=== PATIENT | female | born 1970 | race Caucasian/White ===

== ENCOUNTER → 2016-07-29 | Outpatient (CLI) | payer OTHER ==
--- NOTE | 2016-07-29 07:58 | US ---
EXAMINATION TYPE: US abdomen complete DATE OF EXAM: 07/29/2016 7:23 AM COMPARISON: NONE CLINICAL HISTORY: R10.9 ABD PAIN. EXAM MEASUREMENTS: Liver Length: 14.8 cm Gallbladder Wall: 0.1 cm CBD: 0.3 cm Spleen: 9.7 cm Right Kidney: 11.0 x 3.8 x 4.3 cm Left Kidney: 11.1 x 5.2 x 5.0 cm TECHNOLOGIST IMPRESSION: large body habitus, overlying bowel gas Pancreas: large body habitus, overlying bowel gas, portions seen wnl Liver: small cystic structure rt lobe 1.7 x 1.4 x 1.4 cm Gallbladder: wnl Evidence for sonographic Regalado's sign: no CBD: no Spleen: no Right Kidney: anterior upper pole bright echo 0.4 x 0.6 x 0.6 cm no hydro seen lower pole cyst 0.7 x 0.6 x 0.4 cm Left Kidney: no hydro seen fatty sinus 3.3 x 3.5 x 3.0 cm Upper IVC: wnl Abd Aorta: wnl The liver is homogenous. Hepatic cyst is noted. The intrahepatic portion of the IVC and proximal abdo jai aorta are within normal limits. There is no evidence of cholelithiasis. Common bile duct is u nremarkable. The visualized portions of the pancreas are homogenous. The spleen is unremarkable. K idneys are symmetric and free of hydronephrosis. No renal lesions are seen. Nonobstructing right tanner al calculus. IMPRESSION: 1. Hepatic cyst. 2. Nonobstructing right renal calculus.
--- NOTE | 2016-07-29 08:04 | US ---
EXAMINATION TYPE: US pelvis complete transvag DATE OF EXAM: 07/29/2016 7:48 AM COMPARISON: IN pacs 2009 CLINICAL HISTORY: R10.9 ABD PAIN. MID ABD PAIN TECHNIQUE: Transvaginal (TV) and Transabdominal (TA) SUPPLEMENTALl TV Date of LMP: 07/27/2016 EXAM MEASUREMENTS: Uterus: 9.8 x 4.5 x 4.4 cm Endometrial Stripe: 0.3 cm Right Ovary: 1.2 x 3.6 x 3.1 cm cm Left Ovary: 2.0 x 1.4 x 3.2 cm 1. Uterus: Anteverted heterogenous small nabothian cyst , bright echo 0.6 x 0.6 x 0.3 cm 2. Endometrium: wnl 3. Right Ovary: 0.6 x 0.5 x 0.6 cm 4. Left Ovary: 1.0 x 1.0 x 1.2 cm cyst 5. Bilateral Adnexa: wnl 6. Posterior cul-de-sac: wnl IMPRESSION: No significant abnormality identified.
== END | disposition home or self-care (01) ==
LOC: RADUSWWP 06:59
PROVIDERS: ATTEND Family Medicine
DX: N20.0 Calculus of kidney (principal); K76.89 Other specified diseases of liver
CPT/HCPCS: 76700; 76830; 76856

== ENCOUNTER 2017-07-22 18:07 | Emergency (ER) | payer OTHER ==
[2017-07-22 18:17] VITALS: RESP 18; TEMP 98.7
--- NOTE | 2017-07-22 18:55 | ED ---
General Adult HPI - General Chief complaint: Chest Pain Stated complaint: Pain in chest/stomach Time Seen by Provider: 07/22/17 18:35 Source: patient, RN notes reviewed, old records reviewed Mode of arrival: ambulatory Limitations: no limitations - History of Present Illness Initial comments: 46-year-old female presents for evaluation of left-sided chest pain. Pain has been present for the past 6 months. Pain is dull, worse with deep inspiration. Pain is only present on exertion. Denies significant dyspnea. Denies nausea vomiting. Patient was seen at an outside hospital, had an echo and workup for this pain proximally 6 months ago. She did not follow-up. Patient is a nonsmoker. No significant coronary artery disease in her family. No other medical prior is not currently on any medication. - Related Data Home Medications Medication Instructions Recorded Confirmed Ibuprofen [Motrin Ib] 200 - 400 mg PO Q6H PRN 07/22/17 07/22/17 Melatonin 3 mg PO HS 07/22/17 07/22/17 Previous Rx's Medication Instructions Recorded Aspirin 325 mg PO DAILY #30 tab 07/22/17 Allergies Allergy/AdvReac Type Severity Reaction Status Date / Time tramadol AdvReac Itching Verified 07/22/17 18:47 Review of Systems ROS Statement: Those systems with pertinent positive or pertinent negative responses have been documented in the HPI. ROS Other: All systems not noted in ROS Statement are negative. Past Medical History Past Medical History: GI Bleed History of Any Multi-Drug Resistant Organisms: None Reported Additional Past Surgical History / Comment(s): colonoscopy, D&C, rectocele Past Anesthesia/Blood Transfusion Reactions: No Reported Reaction Past Psychological History: No Psychological Hx Reported Smoking Status: Never smoker Past Alcohol Use History: None Reported Past Drug Use History: None Reported General Exam Limitations: no limitations General appearance: alert, in no apparent distress Head exam: Present: atraumatic, normocephalic Eye exam: Present: normal appearance, PERRL ENT exam: Present: normal exam Neck exam: Present: normal inspection. Absent: tenderness, meningismus Respiratory exam: Present: normal lung sounds bilaterally. Absent: respiratory distress, wheezes, chest wall tenderness Cardiovascular Exam: Present: regular rate, normal rhythm GI/Abdominal exam: Present: soft. Absent: distended, tenderness Extremities exam: Present: normal inspection, full ROM. Absent: normal capillary refill, pedal edema Back exam: Present: normal inspection, full ROM Neurological exam: Present: alert, oriented X3 Psychiatric exam: Present: normal affect, normal mood Skin exam: Present: warm, dry, intact. Absent: cyanosis, diaphoretic Course Vital Signs 07/22/17 07/22/17 18:14 19:30 Temperature 98.7 F Pulse Rate 76 88 Respiratory 18 18 Rate Blood Pressure 117/66 103/62 O2 Sat by Pulse 98 100 Oximetry EKG Findings - EKG Comments: EKG Findings:: EKG shows normal sinus rhythm, ventricular rate 72, DE interval 150, castration 88, QTC 446, no signs of ischemia or infarction Medical Decision Making - Medical Decision Making 46-year-old female presenting with 6 month history of left-sided chest pain. Patient had an echo obtained, was told it was an abnormality and has been concerned about this. She has been stressed out and not followed up. These records were obtained from [facility], there was normal echo with possibility of patent foramen ovale this was not confirmed on ultrasound. Otherwise ejection fraction 50-55% with normal phallus and diastolic parameters. Patient's workup including CBC, CMP, d-dimer, and cardiac enzymes is unremarkable, EKG is nonischemic. She will follow-up with her primary care physician and is given cardiology follow-up given the possibility of patent foramen ovale. She will take a daily aspirin. - Lab Data Result diagrams: 07/22/17 18:43 07/22/17 18:43 Lab Results 07/22/17 07/22/17 07/22/17 Range/Units 18:43 18:43 18:43 WBC 7.3 (3.8-10.6) k/uL RBC 4.52 (3.80-5.40) m/uL Hgb 12.6 (11.4-16.0) gm/dL Hct 37.9 (34.0-46.0) % MCV 83.8 (80.0-100.0) fL MCH 28.0 (25.0-35.0) pg MCHC 33.4 (31.0-37.0) g/dL RDW 14.9 (11.5-15.5) % Plt Count 234 (150-450) k/uL Neutrophils % 60 % Lymphocytes % 31 % Monocytes % 5 % Eosinophils % 2 % Basophils % 0 % Neutrophils # 4.4 (1.3-7.7) k/uL Lymphocytes # 2.3 (1.0-4.8) k/uL Monocytes # 0.4 (0-1.0) k/uL Eosinophils # 0.1 (0-0.7) k/uL Basophils # 0.0 (0-0.2) k/uL PT (9.0-12.0) sec INR (<1.2) APTT (22.0-30.0) sec D-Dimer (<0.60) mg/L FEU Sodium 141 (137-145) mmol/L Potassium 4.3 (3.5-5.1) mmol/L Chloride 108 H (98-107) mmol/L Carbon Dioxide 20 L (22-30) mmol/L Anion Gap 13 mmol/L BUN 21 H (7-17) mg/dL Creatinine 0.70 (0.52-1.04) mg/dL Est GFR (MDRD) Af Amer >60 (>60 ml/min/1.73 sqM) Est GFR (MDRD) Non-Af >60 (>60 ml/min/1.73 sqM) Glucose 89 (74-99) mg/dL Calcium 9.4 (8.4-10.2) mg/dL Magnesium 1.8 (1.6-2.3) mg/dL Total Bilirubin 0.2 (0.2-1.3) mg/dL AST 20 (14-36) U/L ALT 36 (9-52) U/L Alkaline Phosphatase 73 (38-126) U/L Total Creatine Kinase 92 (30-135) U/L CK-MB (CK-2) 1.3 (0.0-2.4) ng/mL CK-MB (CK-2) Rel Index 1.4 Troponin I <0.012 (0.000-0.034) ng/mL NT-Pro-B Natriuret Pep pg/mL Total Protein 7.1 (6.3-8.2) g/dL Albumin 4.2 (3.5-5.0) g/dL 07/22/17 07/22/17 Range/Units 18:43 18:43 WBC (3.8-10.6) k/uL RBC (3.80-5.40) m/uL Hgb (11.4-16.0) gm/dL Hct (34.0-46.0) % MCV (80.0-100.0) fL MCH (25.0-35.0) pg MCHC (31.0-37.0) g/dL RDW (11.5-15.5) % Plt Count (150-450) k/uL Neutrophils % % Lymphocytes % % Monocytes % % Eosinophils % % Basophils % % Neutrophils # (1.3-7.7) k/uL Lymphocytes # (1.0-4.8) k/uL Monocytes # (0-1.0) k/uL Eosinophils # (0-0.7) k/uL Basophils # (0-0.2) k/uL PT 10.0 (9.0-12.0) sec INR 1.0 (<1.2) APTT 24.7 (22.0-30.0) sec D-Dimer 0.50 (<0.60) mg/L FEU Sodium (137-145) mmol/L Potassium (3.5-5.1) mmol/L Chloride (98-107) mmol/L Carbon Dioxide (22-30) mmol/L Anion Gap mmol/L BUN (7-17) mg/dL Creatinine (0.52-1.04) mg/dL Est GFR (MDRD) Af Amer (>60 ml/min/1.73 sqM) Est GFR (MDRD) Non-Af (>60 ml/min/1.73 sqM) Glucose (74-99) mg/dL Calcium (8.4-10.2) mg/dL Magnesium (1.6-2.3) mg/dL Total Bilirubin (0.2-1.3) mg/dL AST (14-36) U/L ALT (9-52) U/L Alkaline Phosphatase (38-126) U/L Total Creatine Kinase (30-135) U/L CK-MB (CK-2) (0.0-2.4) ng/mL CK-MB (CK-2) Rel Index Troponin I (0.000-0.034) ng/mL NT-Pro-B Natriuret Pep 31 pg/mL Total Protein (6.3-8.2) g/dL Albumin (3.5-5.0) g/dL Disposition Clinical Impression: Chest pain Disposition: HOME SELF-CARE Condition: Good Instructions: Chest Pain (ED) Prescriptions: Aspirin 325 mg PO DAILY #30 tab Referrals: Gisel Ramesh MD [Primary Care Provider] - 1-2 days Piyush Phillips MD [STAFF PHYSICIAN] - 1-2 days Time of Disposition: 20:28
--- NOTE | 2017-07-22 19:11 | XR ---
EXAMINATION TYPE: XR chest 2V DATE OF EXAM: 07/22/2017 COMPARISON: NONE HISTORY: Chest discomfort TECHNIQUE: Frontal and lateral views of the chest are obtained. FINDINGS: Heart and mediastinum are normal. Lungs are clear. Diaphragm is normal. Bony thorax appear s normal. There are chest leads. IMPRESSION: Normal chest. No change.
[2017-07-22 19:15] LABS: Basophils % (A) 0 %; Eosinophils # (A) 0.1 k/uL (0-0.7); Eosinophils % (A) 2 %; HCT 37.9 % (34.0-46.0); HGB 12.6 gm/dL (11.4-16.0); Lymphocytes # (A) 2.3 k/uL (1.0-4.8); Lymphocytes % (A) 31 %; MCHC 33.4 g/dL (31.0-37.0); MCV 83.8 fL (80.0-100.0); Monocytes # (A) 0.4 k/uL (0-1.0); Monocytes % (A) 5 %; Neutrophils # (A) 4.4 k/uL (1.3-7.7); Neutrophils % (A) 60 %; Platelet Count 234 k/uL (150-450); RBC 4.52 m/uL (3.80-5.40); RDW 14.9 % (11.5-15.5); WBC 7.3 k/uL (3.8-10.6)
[2017-07-22 19:24] LABS: D-Dimer 0.5 mg/L FEU (<0.60)
[2017-07-22 19:28] LABS: Partial Thromboplastin Time 24.7 sec (22.0-30.0)
[2017-07-22 19:32] VITALS: BP 103/62; PULSE 88
[2017-07-22 19:36] LABS: ALT 36 U/L (9-52); AST 20 U/L (14-36); Albumin 4.2 g/dL (3.5-5.0); Alkaline Phosphatase 73 U/L (38-126); Anion Gap 13 mmol/L; Blood Urea Nitrogen 21 mg/dL (7-17); Calcium 9.4 mg/dL (8.4-10.2); Carbon Dioxide 20 mmol/L (22-30); Chloride 108 mmol/L (98-107); Glucose 89 mg/dL (74-99); Magnesium 1.8 mg/dL (1.6-2.3); Potassium 4.3 mmol/L (3.5-5.1); Sodium 141 mmol/L (137-145); Total Bilirubin 0.2 mg/dL (0.2-1.3); Total Protein 7.1 g/dL (6.3-8.2)
[2017-07-22 19:42] LABS: Creatine Kinase 92 U/L (30-135)
[2017-07-22 19:54] LABS: Creatine Kinase MB 1.3 ng/mL (0.0-2.4); Troponin I <0.012 ng/mL (0.000-0.034)
== END 2017-07-22 20:30 | disposition home or self-care (01) ==
LOC: EC 18:07
DX: R07.9 Chest pain, unspecified (principal); Z79.899 Other long term (current) drug therapy; Z88.6 Allergy status to analgesic agent
CPT/HCPCS: 36415; 71046; 80053; 82550; 82553; 83735; 83880; 84484; 85025; 85379; 85610; 85730; 93005; 99285

== ENCOUNTER 2018-01-14 07:45 | Day surgery (SDC) | payer OTHER ==
[2018-01-11 11:46] VITALS: BMI 34.7
[~2018-01-14 07:45] MED LIST: DEXAMETHASONE SOD PHOSPHATE 10 MG/ML 1 ML VIAL IV ONE; HEPARIN SODIUM,PORCINE 5,000 UNIT/ML 1 ML VIAL SQ ONE; LACTATED RINGERS 1,000 ML IV SCH; MIDAZOLAM 2 MG/2 ML VIAL IV PRN; ONDANSETRON 4 MG/2 ML VIAL IVP ONE; SCOPOLAMINE 1.5MG/72HR PATCH TRANSDERM ONE; ceFAZolin IN SWFI 2 GM/20 ML SYRINGE IVP ONE; fentaNYL (PF) 50 MCG/ML 2 ML AMP IV PRN
[2018-01-14 08:27] VITALS: RESP 16; TEMP 98.7
[2018-01-14] MEDS ORDERED: LIDOCAINE 1% 20 ML VIAL (10MG/ML) FOR IV START INTRADERMA ONE (08:36)
--- NOTE | 2018-01-14 08:37 | P.GSHP ---
History of Present Illness H&P Date: 01/14/18 Chief Complaint: Right upper quadrant pain Since 47-year-old female who presents today for laparoscopic cholestatic. Patient had a recent HIDA scan which showed evidence of chronic cholecystitis. She does today for laparoscopic cholecystectomy. Past Medical History Past Medical History: GI Bleed Additional Past Medical History / Comment(s): Restless Leg Syndrome. History of Any Multi-Drug Resistant Organisms: None Reported Additional Past Surgical History / Comment(s): Colonoscopies, D&C, rectocele repair. Past Anesthesia/Blood Transfusion Reactions: No Reported Reaction Past Psychological History: Anxiety Smoking Status: Never smoker Past Alcohol Use History: Rare Past Drug Use History: None Reported - Past Family History Mother Family Medical History: No Reported History Medications and Allergies Home Medications Medication Instructions Recorded Confirmed Type Melatonin 3 mg PO HS 07/22/17 01/14/18 History Cyanocobalamin (Vitamin B-12) 10,000 mcg PO DAILY 01/11/18 01/14/18 History [Vitamin B12] rOPINIRole HCL 10 mg PO HS 01/11/18 01/14/18 History Allergies Allergy/AdvReac Type Severity Reaction Status Date / Time tramadol AdvReac Itching Verified 01/14/18 08:19 Surgical - Exam Vital Signs Temp Pulse Resp BP Pulse Ox 98.7 F 64 16 111/61 98 01/14/18 08:26 01/14/18 08:26 01/14/18 08:26 01/14/18 08:26 01/14/18 08:26 - General well developed, no distress - Eyes PERRL - ENT normal pinna - Neck no masses - Respiratory normal expansion - Cardiovascular Rhythm: regular - Abdomen Abdomen: soft, non tender Assessment and Plan Assessment: Chronic cholecystitis. We'll perform laparoscopic cholecystectomy..
[2018-01-14] MEDS ORDERED: MIDAZOLAM 2 MG/2 ML VIAL ONE (08:49)
[2018-01-14] MEDS ORDERED: KETOROLAC 30 MG/ML 1 ML VIAL ONE (08:49)
[2018-01-14] MEDS ORDERED: MORPHINE SULFATE 10 MG/ML SYRINGE ONE (08:49)
[2018-01-14] MEDS ORDERED: ROCURONIUM BROMIDE 10 MG/ML 10 ML VIAL IV ONE (08:49)
[2018-01-14] MEDS ORDERED: LIDOCAINE 1% INJ 10MG/ML (20 ML MDV) ONE (08:49)
[2018-01-14] MEDS ORDERED: NEOSTIGMINE 1 MG/ML 10 ML VIAL ONE (08:49)
[2018-01-14] MEDS ORDERED: GLYCOPYRROLATE 0.2 MG/ML 2 ML VIAL ONE (08:49)
[2018-01-14] MEDS ORDERED: PHENYLEPHRINE-0.9% NACL SYG 1 MG/10 ML SYRINGE ONE (08:49)
[2018-01-14] MEDS ORDERED: PROPOFOL 10 MG/ML 20 ML VIAL IV ONE (08:49)
[2018-01-14] MEDS ORDERED: fentaNYL (PF) 50 MCG/ML 2 ML AMP ONE (08:49)
[2018-01-14] MEDS ORDERED: SUCCINYLCHOLINE CHLORIDE 100 MG/5 ML SYR IV ONE (08:49)
--- NOTE | 2018-01-14 09:04 | P.OP ---
Date of Procedure: 01/14/18 Preoperative Diagnosis: GERD Postoperative Diagnosis: Antral gastritis Small sliding hiatal hernia Esophagitis Procedure(s) Performed: EGD Anesthesia: MAC Surgeon: Clint Flores Pathology: other (Antrum, esophagus) Condition: stable Disposition: PACU Description of Procedure: The patient's placed on the endoscopy table in the lateral position. She received IV sedation. The gastroscope placed oropharynx passed in the esophagus and stomach. Scope was then placed through the pylorus. The first and second portion of the duodenum appeared normal. Scope was then brought back the antrum and this was mildly inflamed. A biopsies was performed. Scope was unretroflexed and remainder the stomach appeared normal. There was a small sliding hiatal hernia. There was evidence of a small sliding hiatal hernia The GE junction was at 38 cm. The distal esophagus appeared inflamed. Biopsies of the esophagus performed. The scope was then withdrawn and the proximal esophagus appeared normal. Scope withdrawn for patient.
--- NOTE | 2018-01-14 09:32 | P.OP ---
Date of Procedure: 01/14/18 Preoperative Diagnosis: Cholecystitis Postoperative Diagnosis: Cholecystitis Procedure(s) Performed: Laparoscopic cholecystectomy Anesthesia: LESLIE Surgeon: Clint Flores Estimated Blood Loss (ml): 5 Pathology: other (Gallbladder) Condition: stable Disposition: PACU Description of Procedure: The patient was placed on the operating table. The patient received a general endotracheal tube anesthesia. The patients abdomen was prepped and draped in the usual sterile fashion. Through an infraumbilical stab incision, the fascia of the anterior abdominal wall was grasped with a pair of Kochers and then the Veress needle was placed in the peritoneal cavity. Position of the Veress needle was confirmed with positive drop test. The abdomen was then insufflated. After adequate insufflation, the 10 mm trocar was placed in the peritoneal cavity. Following this the laparoscope was placed in the peritoneal cavity. The patient was placed in the head-up, right side up position and then a 5 mm trocar was placed in the right lateral and right subcostal position under direct visualization. A 8 mm trocar was placed in the epigastric position. The gallbladder was grasped in the fundus and infundibulum. Traction on the gallbladder was placed in the lateral and the cephalad positions. The triangle of Calot was visualized.. The cystic duct was bluntly dissected until the union of the cystic duct and common bile duct was seen. The cystic duct was then divided and sealed with the Harmonic scissors. A PDS Endoloop was then placed throughout the cystic duct stump. The cystic artery divided and sealed with the Harmonic scissors. The gallbladder was then removed from the liver bed using Harmonic scissors. The gallbladder was then extracted through the epigastric port site. Operative field was checked for any bleeding spots and Harmonic scissors was used to coagulate the liver bed. The abdomen was irrigated. The trocars were removed. The skin was closed using interrupted 3-0 Vicryl suture. Dermabond dressing were applied. The patient tolerated the procedure well.
[2018-01-14] MEDS ORDERED: HYDROmorphone (PF) 1 MG/ML ONE (10:00)
[2018-01-14 12:29] VITALS: BP 92/54; PULSE 75
== END 2018-01-14 13:38 | disposition home or self-care (01) ==
LOC: OR 07:45
PROVIDERS: ATTEND Surgery
DX: K80.10 Calculus of gallbladder with chronic cholecystitis without obstruction (principal); G25.81 Restless legs syndrome; Z79.899 Other long term (current) drug therapy; Z88.5 Allergy status to narcotic agent
CPT/HCPCS: 81025; 88304; 47562; J2250; J1100; J2710; J2270; J2405; J2001; J3010; J1885; J1170; J2370; J0330; J2704; J0690

== ENCOUNTER → 2018-10-10 | Outpatient (CLI) | payer OTHER ==
--- NOTE | 2018-10-11 09:13 | MM ---
Reason for exam: screening (asymptomatic). Last mammogram was performed 2 years and 5 months ago. Physical Findings: A clinical breast exam by your physician is recommended on an annual basis and results should be correlated with mammographic findings. MG Screening Mammo w CAD Bilateral CC and MLO view(s) were taken. Prior study comparison: May 01, 2016, bilateral MG screening mammo w CAD. April 24, 2009, mammogram, performed at [facility]. The breast tissue is heterogeneously dense. This may lower the sensitivity of mammography. There is chronic nodularity in the left breast. No significant changes when compared with prior studies. ASSESSMENT: Benign, BI-RAD 2 RECOMMENDATION: Routine screening mammogram of both breasts in 1 year.
--- NOTE | 2018-10-11 09:20 | XR ---
EXAMINATION TYPE: XR skull complete DATE OF EXAM: 10/10/2018 COMPARISON: NONE HISTORY: Palpable abnormality right-sided skull near parietal bone TECHNIQUE: 4 views are submitted FINDINGS: Osseous structures intact. No acute fracture. No destructive change. There is a bony area o f thickening along the right parietal bone which was seen by previous CT scan of 2010. IMPRESSION: Persistent area of bony thickening and sclerosis along the right frontal parietal junctio n which was also reported by previous CT scan. This could be reevaluated with CT scan if there is con cern for growth.
== END | disposition home or self-care (01) ==
LOC: RADMAMWWP 15:08
PROVIDERS: ATTEND Family Medicine
DX: Z12.31 Encounter for screening mammogram for malignant neoplasm of breast (principal); M89.8X8 Other specified disorders of bone, other site
CPT/HCPCS: 70260; 77067

== ENCOUNTER → 2018-11-01 | Outpatient (CLI) | payer OTHER ==
--- NOTE | 2018-11-01 12:25 | XR ---
EXAMINATION TYPE: XR chest 2V DATE OF EXAM: 11/01/2018 COMPARISON: 07/22/2017 TECHNIQUE: PA and lateral views submitted. HISTORY: Chest pain and cough FINDINGS: The lungs are clear and there is no pneumothorax, pleural effusion, or focal pneumonia. IMPRESSION: 1. No acute process.
== END | disposition home or self-care (01) ==
LOC: RADXRMAIN 11:15
PROVIDERS: ATTEND Family Medicine
DX: N39.0 Urinary tract infection, site not specified (principal)
CPT/HCPCS: 71046

== ENCOUNTER 2020-03-10 19:48 | Emergency (ER) | payer BC ==
--- NOTE | 2020-03-10 21:18 | XR ---
EXAMINATION TYPE: XR chest 2V DATE OF EXAM: 03/10/2020 COMPARISON: 11/01/2018 HISTORY: Chest pain TECHNIQUE: FINDINGS: Heart and mediastinum are normal. Lungs are clear. Diaphragm is normal. There is 15% wedgin g of one mid thoracic vertebra. IMPRESSION: No active cardiopulmonary disease. Normal heart. No change.
[2020-03-10] MEDS ORDERED: SODIUM CHLORIDE 0.9% 1,000 ML IV STA (21:27)
[2020-03-10 22:20] LABS: Basophils # (A) 0.1 k/uL (0-0.2); Basophils % (A) 1 %; Eosinophils # (A) 0.3 k/uL (0-0.7); Eosinophils % (A) 3 %; HCT 37.9 % (34.0-46.0); HGB 12.3 gm/dL (11.4-16.0); Lymphocytes # (A) 3.1 k/uL (1.0-4.8); Lymphocytes % (A) 34 %; MCH 27.5 pg (25.0-35.0); MCHC 32.5 g/dL (31.0-37.0); MCV 84.7 fL (80.0-100.0); Mean Platelet Volume 8.3; Monocytes # (A) 0.5 k/uL (0-1.0); Monocytes % (A) 6 %; Neutrophils # (A) 5.1 k/uL (1.3-7.7); Neutrophils % (A) 55 %; Platelet Count 237 k/uL (150-450); RBC 4.48 m/uL (3.80-5.40); RDW 13.6 % (11.5-15.5); WBC 9.3 k/uL (3.8-10.6)
--- NOTE | 2020-03-10 22:24 | ED ---
Chest Pain HPI - General Chief Complaint: Chest Pain Stated Complaint: Chest Pain, Arm Pain Source: patient Mode of arrival: wheelchair - History of Present Illness Initial Comments: Arsenio is a 49-year-old female who presents to the emergency department today for evaluation of chest pain. Patient reports that on Wednesday of this week she had some nausea and vomiting. On Wednesday she noticed some pain in her epigastrium and retrosternal area. Pain is described a sharp sometimes worse with eating but happens without provocation as well. Not associated with any shortness breath diaphoresis lightheadedness. She has no cardiac history. She did see her primary care provider on Wednesday who advised her she likely had some irritation of her esophagus or irritation due to her hiatal hernia. Solange cuello states that she has been trying to have a bland diet and has given of coffee but still has pain which prompted her to come the ER today. - Related Data Home Medications Medication Instructions Recorded Confirmed Melatonin 3 mg PO HS 07/22/17 01/14/18 Cyanocobalamin (Vitamin B-12) 10,000 mcg PO DAILY 01/11/18 01/14/18 [Vitamin B12] rOPINIRole HCL 10 mg PO HS 01/11/18 01/14/18 Previous Rx's Medication Instructions Recorded Docusate [Colace] 100 mg PO BID #20 capsule 01/14/18 HYDROcodone/APAP 7.5-325MG [[place] 1 tab PO Q4H PRN 3 Days #18 tab 01/14/18 7.5-325] Sucralfate [Carafate] 1 gm PO ACHS #1 bottle 03/11/20 Sucralfate [Carafate] 1 gm PO ACHS #60 tab 03/11/20 Allergies Allergy/AdvReac Type Severity Reaction Status Date / Time tramadol AdvReac Itching Verified 03/10/20 20:07 Review of Systems ROS Statement: Those systems with pertinent positive or pertinent negative responses have been documented in the HPI. ROS Other: All systems not noted in ROS Statement are negative. EKG Findings - EKG Comments: EKG Findings:: EKG was obtained due to complaints of chest pain, EKG was obtained at 2025, rate is 69 rhythm is sinus there is a normal axis, there are normal intervals, WA 164, he received 4, QTC 415 there are no acute ST elevations or depressions there is no evidence of acute ischemia or infarction. Past Medical History Past Medical History: GI Bleed Additional Past Medical History / Comment(s): Restless Leg Syndrome. History of Any Multi-Drug Resistant Organisms: None Reported Additional Past Surgical History / Comment(s): Colonoscopies, D&C, rectocele repair. Past Anesthesia/Blood Transfusion Reactions: No Reported Reaction Past Psychological History: Anxiety Smoking Status: Never smoker Past Alcohol Use History: Rare Past Drug Use History: None Reported - Past Family History Mother Family Medical History: No Reported History General Exam - General Exam Comments Initial Comments: Physical Exam GENERAL: Patient is well-developed and well-nourished. Patient is nontoxic and well- hydrated and is in no distress. HENT: Normocephalic, Atraumatic. EYES: PERRL, EOMI PULMONARY: Unlabored respirations. No audible rales rhonchi or wheezing was noted. CARDIOVASCULAR: There is a regular rate and rhythm without any murmurs gallops or rubs. ABDOMEN: Soft and nontender with normal bowel sounds. SKIN: Skin is clear with no lesions or rashes and otherwise unremarkable. : Deferred NEUROLOGIC: Patient is alert and oriented x3. Moving all extremities spontaneously MUSCULOSKELETAL: Normal extremities with adequate strength and full range of motion. No lower extremity swelling or edema. No calf tenderness. PSYCHIATRIC: Normal psychiatric evaluation. Course Vital Signs 03/10/20 03/10/20 03/10/20 20:04 20:30 20:33 Temperature 98.1 F Pulse Rate 75 Pulse Rate [ 69 Apical] Respiratory 18 Rate Blood Pressure 114/77 O2 Sat by Pulse 100 100 Oximetry 03/10/20 03/10/20 03/10/20 21:00 21:30 22:00 Temperature Pulse Rate 67 70 64 Pulse Rate [ Apical] Respiratory Rate Blood Pressure 134/84 112/73 115/76 O2 Sat by Pulse 99 98 98 Oximetry 03/10/20 03/10/20 03/10/20 22:30 23:00 23:57 Temperature Pulse Rate 64 68 75 Pulse Rate [ Apical] Respiratory 19 Rate Blood Pressure 126/72 125/78 109/75 O2 Sat by Pulse 99 99 99 Oximetry 03/11/20 03/11/20 00:02 01:04 Temperature Pulse Rate 70 67 Pulse Rate [ Apical] Respiratory 19 19 Rate Blood Pressure 125/91 105/68 O2 Sat by Pulse 99 96 Oximetry Chest Pain MDM - MDM Patient was seen and evaluated history is obtained from patient 49-year-old female with no cardiac history presenting with pain after vomiting Labs and x-rays were obtained resulted with no acute findings EKG was nonischemic No evidence of ACS, pericarditis, myocarditis, pulmonary embolism, pneumothorax, pneumonia, Zoster, or esophageal perforation. Historically not abrupt in onset, tearing or ripping, pulses symmetric, no evidence of aortic dissection. Patient was given a GI cocktail and reported significant improvement in her discomfort, at this time considering her pain is been persistent for a number of days her troponin is negative and she has relief with GI cocktail feel confident that her discomfort is secondary to GI source. This was discussed with the patient who is comfortable with the plan for discharge home and outpatient follow-up. Patient will be prescribed Carafate I advised her that I prefer the suspension however if her insurance doesn't cover it she can use the tablets. Recommend she follow with her primary care physician for possible referral to gastroenterology. All questions pertaining care were answered to the best of my ability return parameters were discussed patient was discharged home in stable condition. Disposition Clinical Impression: Atypical chest pain, Gastritis Disposition: HOME SELF-CARE Condition: Stable Additional Instructions: As we discussed you only need to fill one of the Carafate prescriptions, I would prefer the suspension however fear insurance doesn't cover this or it is not cost effective he can use the tablets Eat a bland diet, avoid spicy or greasy foods, eat very small meals multiple times a day All over their primary care physician for possible referral to GI for endoscopy if you have persistent symptoms Return to the ER if you have any worsening pain or develop any new or concerning symptoms Prescriptions: Sucralfate [Carafate] 1 gm PO ACHS #1 bottle Sucralfate [Carafate] 1 gm PO ACHS #60 tab Is patient prescribed a controlled substance at d/c from ED?: No Referrals: Heather Salamanca MD [Primary Care Provider] - 1-2 days
[2020-03-10 22:30] LABS: INR 0.9 (<1.2); Partial Thromboplastin Time 22.4 sec (22.0-30.0); Prothrombin Time 9.6 sec (9.0-12.0)
[2020-03-10 22:33] LABS: ALT 14 U/L (4-34); African American GFR (CKD) >90 (>60 ml/min/1.73 sqM); Albumin 3.7 g/dL (3.5-5.0); Anion Gap 6 mmol/L; Blood Urea Nitrogen 21 mg/dL (7-17); Calcium 8.9 mg/dL (8.4-10.2); Carbon Dioxide 23 mmol/L (22-30); Chloride 106 mmol/L (98-107); Glucose 85 mg/dL (74-99); Non-African American GFR(CKD) >90 (>60 ml/min/1.73 sqM); Sodium 135 mmol/L (137-145); Total Bilirubin 0.4 mg/dL (0.2-1.3); Total Protein 6.3 g/dL (6.3-8.2)
[2020-03-10 22:57] LABS: AST 24 U/L (14-36); Alkaline Phosphatase 72 U/L (38-126); Magnesium 1.8 mg/dL (1.6-2.3); Potassium 4.8 mmol/L (3.5-5.1)
[2020-03-10] MEDS ORDERED: MAG HYDROX/AL HYDROX/SIMETH 30 ML, HYOSCYAMINE ELIXIR 10 ML, LIDOCAINE VISCOUS 2% 10 ML PO STA ×3 (23:14)
[2020-03-11 01:37] VITALS: BP 102/72; PULSE 61; RESP 15; TEMP 98.7
== END 2020-03-11 01:39 | disposition home or self-care (01) ==
LOC: EC 19:48
DX: R07.89 Other chest pain (principal); K29.70 Gastritis, unspecified, without bleeding; K44.9 Diaphragmatic hernia without obstruction or gangrene; G25.81 Restless legs syndrome; Z79.890 Hormone replacement therapy; Z79.899 Other long term (current) drug therapy; Z88.5 Allergy status to narcotic agent
CPT/HCPCS: 36415; 71046; 80053; 83735; 84484; 85025; 85610; 85730; 93005; 96360; 96361; 99285

== ENCOUNTER 2020-05-02 10:25 | Day surgery (SDC) | payer BC ==
[2020-05-01 09:15] VITALS: BMI 35.0
[~2020-05-02 10:25] MED LIST changes: -DEXAMETHASONE SOD PHOSPHATE 10 MG/ML 1 ML VIAL IV ONE; -HEPARIN SODIUM,PORCINE 5,000 UNIT/ML 1 ML VIAL SQ ONE; -MIDAZOLAM 2 MG/2 ML VIAL IV PRN; -ONDANSETRON 4 MG/2 ML VIAL IVP ONE; -SCOPOLAMINE 1.5MG/72HR PATCH TRANSDERM ONE; -ceFAZolin IN SWFI 2 GM/20 ML SYRINGE IVP ONE; -fentaNYL (PF) 50 MCG/ML 2 ML AMP IV PRN
[2020-05-02 10:50] VITALS: TEMP 98
[2020-05-02] MEDS ORDERED: LACTATED RINGERS 1,000 ML IV ONE (10:50)
[2020-05-02] MEDS ORDERED: LIDOCAINE 1% (10MG/ML) FOR IV START INTRADERMA ONE (10:51)
[2020-05-02] MEDS ORDERED: PROPOFOL 10 MG/ML 20 ML VIAL IV ONE (12:02)
[2020-05-02] MEDS ORDERED: LIDOCAINE 1% INJ 10MG/ML (20 ML MDV) ONE (12:02)
--- NOTE | 2020-05-02 12:24 | P.PCN ---
Date of Procedure: 05/02/20 Description of Procedure: BRIEF HISTORY: Patient is a 49-year-old female presenting for outpatient EGD for evaluation of epigastric abdominal pain. Patient has been having pain in her abdomen for the past few. She is on PPI therapy. She denies any nausea or vomiting. PROCEDURE PERFORMED: Esophagogastroduodenoscopy with biopsy. PREOPERATIVE DIAGNOSIS: Epigastric abdominal pain, GERD. ESTIMATED BLOOD LOSS: Minimal. IV sedation per anesthesia. PROCEDURE: After informed consent was obtained, the patient was brought into the endoscopy unit. IV sedation was administered by Anesthesia under continuous monitoring. Initially the Olympus GIF-190 video endoscope was inserted into the mouth. Esophagus intubated without any difficulty. It was gradually advanced into the stomach and duodenum and carefully examined. The bulb and the second part of the duodenum appeared normal, with biopsies taken to rule out celiac sprue. The scope at this time was withdrawn to the stomach, adequately insufflated with air, and upon careful examination, mucosa of the antrum, body, cardia and the fundus appeared normal, except for some mild linear erythema in the antrum and body suggestive of mild gastritis with biopsies of the antrum and body taken. The scope was then withdrawn into the esophagus. The GE junction was located at 33 cm from the incisors and biopsied. A 4 cm hiatal hernia was noted. The esophagus appeared normal. There were no erosions or ulcerations seen and the patient tolerated the procedure well. IMPRESSION: 1. Mild gastritis. 2. In size hiatal hernia. 3. Biopsies of the antrum and body, duodenum and GE junction. RECOMMENDATIONS: The findings of this examination were discussed with the patient daughter. Okay to resume diet. Resume medications. Await pathology from biopsies. Follow up with primary care physician as scheduled.
[2020-05-02 12:48] VITALS: BP 107/66; PULSE 65; RESP 18
== END 2020-05-02 13:07 | disposition home or self-care (01) ==
LOC: ORWHC2ENDO 10:25
PROVIDERS: ATTEND Internal Medicine
DX: K29.50 Unspecified chronic gastritis without bleeding (principal); K21.00 Gastro-esophageal reflux disease with esophagitis, without bleeding; K44.9 Diaphragmatic hernia without obstruction or gangrene; G25.81 Restless legs syndrome; Z87.11 Personal history of peptic ulcer disease; Z88.5 Allergy status to narcotic agent; Z79.899 Other long term (current) drug therapy; Z90.49 Acquired absence of other specified parts of digestive tract; Z98.890 Other specified postprocedural states
CPT/HCPCS: 88305; 43239; J2001; J2704

== ENCOUNTER 2020-06-05 16:56 | Emergency (ER) | payer BC ==
[2020-06-05 17:03] VITALS: RESP 18
[2020-06-05] MEDS ORDERED: ACETAMINOPHEN TAB 500 MG TAB PO STA (17:18)
[2020-06-05] MEDS ORDERED: SODIUM CHLORIDE 0.9% 1,000 ML IV STA (17:24)
[2020-06-05] MEDS ORDERED: ONDANSETRON 4 MG/2 ML VIAL IVP STA (17:24)
[2020-06-05 17:52] LABS: Basophils % (A) 1 %; Eosinophils % (A) 0 %; HCT 39.9 % (34.0-46.0); HGB 13.6 gm/dL (11.4-16.0); Lymphocytes % (A) 20 %; MCH 28.5 pg (25.0-35.0); MCV 83.8 fL (80.0-100.0); Mean Platelet Volume 8.3; Monocytes # (A) 0.3 k/uL (0-1.0); Monocytes % (A) 5 %; Neutrophils # (A) 3.7 k/uL (1.3-7.7); Neutrophils % (A) 73 %; Platelet Count 185 k/uL (150-450); RBC 4.76 m/uL (3.80-5.40); RDW 13.5 % (11.5-15.5); WBC 5.1 k/uL (3.8-10.6)
[2020-06-05 18:03] LABS: ALT 77 U/L (4-34); AST 74 U/L (14-36); African American GFR (CKD) >90 (>60 ml/min/1.73 sqM); Albumin 3.9 g/dL (3.5-5.0); Alkaline Phosphatase 86 U/L (38-126); Anion Gap 8 mmol/L; Blood Urea Nitrogen 15 mg/dL (7-17); Calcium 8.4 mg/dL (8.4-10.2); Carbon Dioxide 22 mmol/L (22-30); Chloride 106 mmol/L (98-107); Glucose 86 mg/dL (74-99); Non-African American GFR(CKD) >90 (>60 ml/min/1.73 sqM); Potassium 3.8 mmol/L (3.5-5.1); Sodium 136 mmol/L (137-145); Total Bilirubin 0.7 mg/dL (0.2-1.3); Total Protein 6.9 g/dL (6.3-8.2)
--- NOTE | 2020-06-05 18:27 | XR ---
EXAMINATION TYPE: XR chest 1V DATE OF EXAM: 06/05/2020 COMPARISON: 03/10/2020 HISTORY: Cough and fever TECHNIQUE: FINDINGS: Heart and mediastinum are normal. Lungs are clear. Costophrenic angles are clear. There are no hilar masses. Bony thorax is intact. IMPRESSION: No active cardiopulmonary disease. No change.
[2020-06-05 18:43] VITALS: BP 101/58; PULSE 82; TEMP 99.2
--- NOTE | 2020-06-05 19:06 | ED ---
General Adult HPI - General Chief complaint: Upper Respiratory Infection Stated complaint: Flu Symptoms Time Seen by Provider: 06/05/20 17:12 Source: EMS Mode of arrival: EMS Limitations: no limitations - History of Present Illness Initial comments: Patient is a 49-year-old female presenting to emergency Department with a chief complaint of cough, body aches and sinus congestion. Patient reports symptoms began about 2 days ago. She reports having some diarrhea along with nausea and one episode of vomiting was about bloody vomiting. She does report feeling fatigued but denies taking medication to alleviate the symptoms. She does report chills but denies any fevers at home. She also reports a nonproductive cough along with some sinus congestion clear bilateral rhinorrhea. Denies any sore throat or otalgia. Denies any chest pain or shortness of breath. Denies smoking history of asthma or COPD. - Related Data Home Medications Medication Instructions Recorded Confirmed Melatonin 3 mg PO HS 07/22/17 05/01/20 Cyanocobalamin (Vitamin B-12) 10,000 mcg PO DAILY 01/11/18 05/01/20 [Vitamin B12] Omeprazole 20 mg PO BID 05/01/20 05/01/20 Pramipexole [Mirapex] 125 mcg PO HS 05/01/20 05/01/20 Previous Rx's Medication Instructions Recorded Ondansetron Odt [Zofran Odt] 4 mg PO Q8HR PRN #20 tab 06/05/20 Allergies Allergy/AdvReac Type Severity Reaction Status Date / Time tramadol AdvReac Itching Verified 06/05/20 17:03 Review of Systems ROS Statement: Those systems with pertinent positive or pertinent negative responses have been documented in the HPI. ROS Other: All systems not noted in ROS Statement are negative. Past Medical History Past Medical History: GERD/Reflux, GI Bleed Additional Past Medical History / Comment(s): PAST HX GI BLEED. Restless Leg Syndrome. History of Any Multi-Drug Resistant Organisms: None Reported Past Surgical History: Cholecystectomy, Hysterectomy Additional Past Surgical History / Comment(s): Colonoscopies, D&C, rectocele repair. Past Anesthesia/Blood Transfusion Reactions: No Reported Reaction Past Psychological History: Anxiety Smoking Status: Never smoker Past Alcohol Use History: None Reported Past Drug Use History: None Reported - Past Family History Mother Family Medical History: No Reported History General Exam Limitations: no limitations General appearance: alert, in no apparent distress Head exam: Present: atraumatic, normocephalic, normal inspection Eye exam: Present: normal appearance, PERRL, EOMI Pupils: Present: normal accommodation ENT exam: Present: normal exam, normal oropharynx, mucous membranes moist, TM's normal bilaterally, normal external ear exam Neck exam: Present: normal inspection, full ROM. Absent: lymphadenopathy Respiratory exam: Present: normal lung sounds bilaterally. Absent: respiratory distress, wheezes, rales, rhonchi, stridor, chest wall tenderness, accessory muscle use, decreased breath sounds, prolonged expiratory Cardiovascular Exam: Present: regular rate, normal rhythm, normal heart sounds. Absent: systolic murmur, diastolic murmur GI/Abdominal exam: Present: soft. Absent: distended, tenderness, guarding, rebound Extremities exam: Present: normal inspection, full ROM, normal capillary refill. Absent: tenderness, pedal edema, joint swelling, calf tenderness Back exam: Present: normal inspection, full ROM. Absent: tenderness, CVA tenderness (R), CVA tenderness (L) Neurological exam: Present: alert, oriented X3, normal gait Psychiatric exam: Present: normal affect, normal mood Skin exam: Present: warm, dry, intact, normal color Course Vital Signs 06/05/20 06/05/20 16:56 18:40 Temperature 100.1 F H 99.2 F Pulse Rate 97 82 Respiratory 18 18 Rate Blood Pressure 117/67 101/58 O2 Sat by Pulse 95 95 Oximetry Medical Decision Making - Medical Decision Making 49-year-old female presenting to the emergency department with a chief complaint of cough, body aches and sinus congestion. On physical examination, patient is not in respiratory distress but she continues to have a dry cough. X-ray is unremarkable. CBC and CMP are unremarkable except for mild transaminitis. Vision is positive for covid-19. Patient is otherwise well-appearing and has stable vitals. Initially, she did have a temperature 100.1. Patient was given Tylenol. On reevaluation, patient does report department is symptoms. She was also given IV fluids. Strict return parameters were thoroughly discussed patient was understanding and agreeable. She will be discharged with Zofran in case she develops more nausea. Patient was advised to self Isaly for the next 10 days and take Tylenol if she develops a fever. Case discussed with physician - Lab Data Result diagrams: 06/05/20 17:38 06/05/20 17:38 Lab Results 06/05/20 06/05/20 06/05/20 Range/Units 17:38 17:38 17:38 WBC 5.1 (3.8-10.6) k/uL RBC 4.76 (3.80-5.40) m/uL Hgb 13.6 (11.4-16.0) gm/dL Hct 39.9 (34.0-46.0) % MCV 83.8 (80.0-100.0) fL MCH 28.5 (25.0-35.0) pg MCHC 34.0 (31.0-37.0) g/dL RDW 13.5 (11.5-15.5) % Plt Count 185 (150-450) k/uL MPV 8.3 Neutrophils % 73 % Lymphocytes % 20 % Monocytes % 5 % Eosinophils % 0 % Basophils % 1 % Neutrophils # 3.7 (1.3-7.7) k/uL Lymphocytes # 1.0 (1.0-4.8) k/uL Monocytes # 0.3 (0-1.0) k/uL Eosinophils # 0.0 (0-0.7) k/uL Basophils # 0.0 (0-0.2) k/uL Sodium 136 L (137-145) mmol/L Potassium 3.8 (3.5-5.1) mmol/L Chloride 106 (98-107) mmol/L Carbon Dioxide 22 (22-30) mmol/L Anion Gap 8 mmol/L BUN 15 (7-17) mg/dL Creatinine 0.53 (0.52-1.04) mg/dL Est GFR (CKD-EPI)AfAm >90 (>60 ml/min/1.73 sqM) Est GFR (CKD-EPI)NonAf >90 (>60 ml/min/1.73 sqM) Glucose 86 (74-99) mg/dL Calcium 8.4 (8.4-10.2) mg/dL Total Bilirubin 0.7 (0.2-1.3) mg/dL AST 74 H (14-36) U/L ALT 77 H (4-34) U/L Alkaline Phosphatase 86 (38-126) U/L Total Protein 6.9 (6.3-8.2) g/dL Albumin 3.9 (3.5-5.0) g/dL Coronavirus (PCR) Detected A (Not Detectd) Disposition Clinical Impression: COVID-19 Disposition: HOME SELF-CARE Condition: Stable Instructions (If sedation given, give patient instructions): Viral Syndrome (ED) Additional Instructions: Self isolate for 10 days from the day of onset of symptoms. Take Tylenol if you developed fever. Return to emergency department if symptoms worsen. Is patient prescribed a controlled substance at d/c from ED?: No Referrals: Heather Salamanca MD [Primary Care Provider] - 1-2 days Time of Disposition: 19:05
== END 2020-06-05 20:03 | disposition home or self-care (01) ==
LOC: EC 16:56
DX: U07.1 COVID-19 (principal); R74.01 Elevation of levels of liver transaminase levels; K21.9 Gastro-esophageal reflux disease without esophagitis; F41.9 Anxiety disorder, unspecified; G25.81 Restless legs syndrome; Z79.899 Other long term (current) drug therapy; Z88.5 Allergy status to narcotic agent; Z90.49 Acquired absence of other specified parts of digestive tract; Z87.19 Personal history of other diseases of the digestive system
CPT/HCPCS: 36415; 80053; 85025; 87635; 71045; 96374; 96361; 99284; J2405

== ENCOUNTER 2024-12-11 09:18 | Emergency (ER) | payer BC ==
[2024-12-11 09:26] VITALS: TEMP 98
--- NOTE | 2024-12-11 09:42 | ED ---
General Adult HPI - General Chief complaint: Skin/Abscess/Foreign Body Stated complaint: R leg pain Time Seen by Provider: 12/11/24 09:21 Source: patient, RN notes reviewed Mode of arrival: ambulatory Limitations: no limitations - History of Present Illness Initial comments: 54 year old female presents to the ED for evaluation of a rash on the front of h er right thigh. She reports she was out in the sun for about an hour a week ago and developed a sunburn there. She has been applying benadryl cream with no relief. She endorses blistering of the skin in the beginning and says it now looks and feels inflamed and painful. She also noticed swelling of the right thigh starting last night. She denies any recent fever or chills - Related Data Home Medications Medication Instructions Recorded Confirmed Melatonin 3 mg PO HS 07/22/17 05/01/20 Cyanocobalamin (Vitamin B-12) 10,000 mcg PO DAILY 01/11/18 05/01/20 [Vitamin B12] Omeprazole 20 mg PO BID 05/01/20 05/01/20 Pramipexole [Mirapex] 125 mcg PO HS 05/01/20 05/01/20 Previous Rx's Medication Instructions Recorded Ondansetron Odt [Zofran Odt] 4 mg PO Q8HR PRN #20 tab 06/05/20 Triamcinolone 0.1% Cream [Kenalog 1 applicatio TOPICAL BID #15 gram 12/11/24 0.1% Cream] Allergies Allergy/AdvReac Type Severity Reaction Status Date / Time tramadol AdvReac Itching Verified 06/05/20 17:03 Review of Systems ROS Statement: Those systems with pertinent positive or pertinent negative responses have been documented in the HPI. ROS Other: All systems not noted in ROS Statement are negative. Past Medical History Past Medical History: GERD/Reflux, GI Bleed Additional Past Medical History / Comment(s): PAST HX GI BLEED. Restless Leg Syndrome. History of Any Multi-Drug Resistant Organisms: None Reported Past Surgical History: Cholecystectomy, Hysterectomy Additional Past Surgical History / Comment(s): Colonoscopies, D&C, rectocele repair. Past Anesthesia/Blood Transfusion Reactions: No Reported Reaction Past Psychological History: Anxiety Smoking Status: Never smoker Past Alcohol Use History: None Reported Past Drug Use History: None Reported - Past Family History Mother Family Medical History: No Reported History General Exam Limitations: no limitations General appearance: alert, in no apparent distress ENT exam: Present: normal exam, normal oropharynx, mucous membranes moist Neck exam: Present: normal inspection, full ROM. Absent: tenderness, meningismus, lymphadenopathy Respiratory exam: Present: normal lung sounds bilaterally. Absent: respiratory distress, wheezes, rales, rhonchi, stridor Cardiovascular Exam: Present: regular rate, normal rhythm, normal heart sounds. Absent: systolic murmur, diastolic murmur, rubs, gallop, clicks Skin exam: Present: warm, dry, intact, normal color, rash (on the front of the right thigh) Course Vital Signs 12/11/24 12/11/24 09:22 10:10 Temperature 98.0 F 98.0 F Pulse Rate 85 80 Respiratory 17 18 Rate Blood Pressure 146/99 139/89 O2 Sat by Pulse 99 99 Oximetry Medical Decision Making - Medical Decision Making Was pt. sent in by a medical professional or institution (, PA, DIRECTOR LEARNING, urgent care, hospital, or detention...) When possible be specific @ -No Did you speak to anyone other than the patient for history (EMS, parent, family, police, friend...)? What history was obtained from this source @ -No Did you review nursing and triage notes (agree or disagree)? Why? @ -I reviewed and agree with nursing and triage notes Were old charts reviewed (outside hosp., previous admission, EMS record, old EKG, old radiological studies, urgent care reports/EKG's, detention records)? Report findings @ -No old charts were reviewed Differential Diagnosis (chest pain, altered mental status, abdominal pain women, abdominal pain men, vaginal bleeding, weakness, fever, dyspnea, syncope, headache, dizziness, GI bleed, back pain, seizure, CVA, palpatations, mental health, musculoskeletal)? @ -Dermatitis, herpes zoster, allergic reaction, sunburn, cellulitis EKG interpreted by me (3pts min.). @ -None X-rays interpreted by me (1pt min.). @ -None done CT interpreted by me (1pt min.). @ -None done U/S interpreted by me (1pt. min.). @ -None done What testing was considered but not performed or refused? (CT, X-rays, U/S, labs)? Why? @ -None What meds were considered but not given or refused? Why? @ -None Did you discuss the management of the patient with other professionals (professionals i.e. , PA, DIRECTOR LEARNING, lab, RT, psych nurse, psych social worker, tax lawyer, teacher, gift officer, caser)? Give summary @ -No Was smoking cessation discussed for >3mins.? @ -No Was critical care preformed (if so, how long)? @ -No Were there social determinants of health that impacted care today? How? (Homelessness, low income, unemployed, alcoholism, drug addiction, transportation, low edu. Level, literacy, decrease access to med. care, retirement, rehab)? @ -No Was there de-escalation of care discussed even if they declined (Discuss DNR or withdrawal of care, Hospice)? DNR status @ -No What co-morbidities impacted this encounter? (DM, HTN, Smoking, COPD, CAD, Cancer, CVA, ARF, Chemo, Hep., AIDS, mental health diagnosis, sleep apnea, morbid obesity)? @ -None Was patient admitted / discharged? Hospital course, mention meds given and route, prescriptions, significant lab abnormalities, going to OR and other pertinent info. @ -[Patient appears to have localized dermatitis may be secondary to recent sunburn, there is no current evidence of bacterial infection. We discussed possibility of shingles but was felt less likely. Patient discharged in stable condition with vies use Aquaphor and return parameters kay Undiagnosed new problem with uncertain prognosis? @ -No Drug Therapy requiring intensive monitoring for toxicity (Heparin, Nitro, Insulin, Cardizem)? @ -No Were any procedures done? @ -No Diagnosis/symptom? @ -Dermatitis Acute, or Chronic, or Acute on Chronic? @ -Acute Uncomplicated (without systemic symptoms) or Complicated (systemic symptoms)? @ -[On complicated Side effects of treatment? @ -No Exacerbation, Progression, or Severe Exacerbation? @ -No Poses a threat to life or bodily function? How? (Chest pain, [place], [place], pneumonia, PE, COPD, DKA, ARF, appy, cholecystitis, CVA, Diverticulitis, Homicidal, Suicidal, threat to staff... and all critical care pts) @ -No Disposition Clinical Impression: Dermatitis Disposition: HOME SELF-CARE Condition: Stable Instructions (If sedation given, give patient instructions): Sunburn (ED), Dermatitis (ED) Additional Instructions: Please return to the Emergency Department if symptoms worsen or any other co ncerns. Prescriptions: Triamcinolone 0.1% Cream [Kenalog 0.1% Cream] 1 applicatio TOPICAL BID #15 gram Is patient prescribed a controlled substance at d/c from ED?: No Referrals: Heather Salamanca MD [Primary Care Provider] - 1-2 days Time of Disposition: 09:58
[2024-12-11 10:12] VITALS: BP 139/89; PULSE 80; RESP 18
== END 2024-12-11 10:12 | disposition home or self-care (01) ==
LOC: EC 09:18
DX: L30.9 Dermatitis, unspecified (principal); Z88.5 Allergy status to narcotic agent
CPT/HCPCS: 99282

== ENCOUNTER 2025-01-19 16:26 | Emergency (ER) | payer BC ==
[2025-01-19 16:41] VITALS: RESP 18
--- NOTE | 2025-01-19 17:26 | ED ---
ENT HPI - General Source: patient Mode of arrival: ambulatory Limitations: no limitations <Arlene Kemp - Last Filed: 01/19/25 18:10> <Rosa Shin - Last Filed: 01/20/25 00:18> - General Chief complaint: ENT Stated complaint: Both Ear Issue Time Seen by Provider: 01/19/25 16:38 - History of Present Illness Initial comments: 54-year-old female with GERD, anxiety here for bilateral ear fullness. Patient reported that she has been having on and off right ear pain for a while but she noticed that she is aware that is worse last Wednesday with associated lightheadedness and fullness that it feels like everything sounds muffled. She tried to see her PCP but was not able to due to work. Yesterday, she began to have pain in the left ear as well. She also began to have cold symptoms such as sinus congestion, productive cough and a sore throat that began last week. 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 She denied fever, chills, nausea, vomiting, ear ringing, dizziness, changes in vision, changes in speech. (Arlene Kemp) - Related Data Home Medications Medication Instructions Recorded Confirmed Melatonin 3 mg PO HS 07/22/17 05/01/20 Cyanocobalamin (Vitamin B-12) 10,000 mcg PO DAILY 01/11/18 05/01/20 [Vitamin B12] Omeprazole 20 mg PO BID 05/01/20 05/01/20 Pramipexole [Mirapex] 125 mcg PO HS 05/01/20 05/01/20 Previous Rx's Medication Instructions Recorded Ondansetron Odt [Zofran Odt] 4 mg PO Q8HR PRN #20 tab 06/05/20 Triamcinolone 0.1% Cream [Kenalog 1 applicatio TOPICAL BID #15 gram 12/11/24 0.1% Cream] Allergies Allergy/AdvReac Type Severity Reaction Status Date / Time tramadol AdvReac Itching Verified 01/19/25 16:41 Review of Systems ROS Other: All systems not noted in ROS Statement are negative. <Arlene Kemp - Last Filed: 01/19/25 18:10> ROS Other: All systems not noted in ROS Statement are negative. <Rosa Shin - Last Filed: 01/20/25 00:18> ROS Statement: Those systems with pertinent positive or pertinent negative responses have been documented in the HPI. Past Medical History Past Medical History: GERD/Reflux, GI Bleed Additional Past Medical History / Comment(s): PAST HX GI BLEED. Restless Leg Syndrome. History of Any Multi-Drug Resistant Organisms: None Reported Past Surgical History: Cholecystectomy, Hysterectomy Additional Past Surgical History / Comment(s): Colonoscopies, D&C, rectocele repair. Past Anesthesia/Blood Transfusion Reactions: No Reported Reaction Past Psychological History: Anxiety Smoking Status: Never smoker Past Alcohol Use History: None Reported Past Drug Use History: None Reported - Past Family History Mother Family Medical History: No Reported History <Arlene Kemp - Last Filed: 01/19/25 18:10> General Exam Limitations: no limitations <Arlene Kemp - Last Filed: 01/19/25 18:10> - General Exam Comments Initial Comments: Physical examination: Vital signs reviewed General: non toxic, no distress, appears at stated age Head: atraumatic, normocephalic, symmetric Ears: No masses bilateral external ear, negative tenderness on bilateral ear tugging, external auditory canal negative for erythema, TM and right ear is intact but with old scarring on right ear with noted earwax, left ear TM intact Mouth: no lip lesion, mucus membranes moist Cardiovascular: S1S2 reg, no murmur Lungs: CTA bilateral, no rhonchi, no rales, no accessory muscle use Abdominal: soft, nondistended, nontender to palpation, no guarding Ext: muscle strength 5 out of 5 in all 4 extremities grossly, no gross muscle atrophy, no contractures, positive dorsalis pedis pulse bilateral, no edema Neuro: no gross focal neuro deficits Psych: Alert and oriented x3, appropriate affect and mood (Arlene Kemp) Course Vital Signs 01/19/25 01/19/25 16:38 18:58 Temperature 98.2 F 98.0 F Pulse Rate 91 76 Respiratory 18 18 Rate Blood Pressure 124/79 124/84 O2 Sat by Pulse 98 96 Oximetry Medical Decision Making <Arlene Kemp - Last Filed: 01/19/25 18:10> <Rosa Shin - Last Filed: 01/20/25 00:18> - Medical Decision Making Was pt. sent in by a medical professional or institution ([facility], [employer], urgent care, hospital, or prison...) When possible be specific @ -No Did you speak to anyone other than the patient for history (EMS, parent, family, police, friend...)? What history was obtained from this source @ -Mother at bedside Did you review nursing and triage notes (agree or disagree)? Why? @ -I reviewed and agree with nursing and triage notes Were old charts reviewed (outside hosp., previous admission, EMS record, old EKG, old radiological studies, urgent care reports/EKG's, prison records)? Report findings @ -No old charts were reviewed Differential Diagnosis? @ -Differential ear pain: Migraine, tension, cluster, mastoiditis, sinusitis, head injury, peritoneal abscess, retropharyngeal abscess CVA this is not meant to be an all-inclusive list. EKG interpreted by me (3pts min.). @ -None done X-rays interpreted by me (1pt min.). @ -None done CT interpreted by me (1pt min.). @ -None done U/S interpreted by me (1pt. min.). @ -None done What testing was considered but not performed or refused? (CT, X-rays, U/S, labs)? Why? @ -None What meds were considered but not given or refused? Why? @ -None Did you discuss the management of the patient with other professionals (professionals i.e. [facility], [employer], lab, RT, psych nurse, community mental health social worker, grain oilseed or pasture farm worker, teacher, sergeant of officers, case picker)? Give summary @ -Dr. Shin, supervising physician Was smoking cessation discussed for >3mins.? @ -No Was critical care preformed (if so, how long)? @ -No Were there social determinants of health that impacted care today? How? (Homelessness, low income, unemployed, alcoholism, drug addiction, transportation, low edu. Level, literacy, decrease access to med. care, skilled nursing, rehab)? @ -No Was there de-escalation of care discussed even if they declined (Discuss DNR or withdrawal of care, Hospice)? DNR status @ -No What co-morbidities impacted this encounter? (DM, HTN, Smoking, COPD, CAD, Canc er, CVA, ARF, Chemo, Hep., AIDS, mental health diagnosis, sleep apnea, morbid obesity)? @ -None Was patient admitted / discharged? Hospital course, mention meds given and route, prescriptions, significant lab abnormalities, going to OR and other pertinent info. @ -Discharge. Patient given 1 dose of Claritin. Patient's symptoms stable throughout her stay. Advised to follow-up with ENT on outpatient basis. Also advised to continue with decongestants and Benadryl at home. Also advised to return if having red flags symptoms such as nausea, vomiting, headache, fever, facial pressure pain, worsening ear pain, ear discharge. Undiagnosed new problem with uncertain prognosis? @ -No Drug Therapy requiring intensive monitoring for toxicity (Heparin, Nitro, Insulin, Cardizem)? @ -No Were any procedures done? @ -No Diagnosis/symptom? @ -Sinus congestion Acute, or Chronic, or Acute on Chronic? @ -Thank Uncomplicated (without systemic symptoms) or Complicated (systemic symptoms)? @ -Uncomplicated Side effects of treatment? @ -No Exacerbation, Progression, or Severe Exacerbation? @ -No Poses a threat to life or bodily function? How? (Chest pain, [place], [place], pneumonia, PE, COPD, DKA, ARF, appy, cholecystitis, CVA, Diverticulitis, Homicidal, Suicidal, threat to staff... and all critical care pts) @ -No (Arlene Kemp) I personally saw the patient and performed the critical portion of the service. I discussed the patient care with the resident physician. I directed management, care planning and final disposition of the patient. This includes, but not limited to, review of all lab work, radiological studies, EKG's, consultations, vital signs, and nursing notes. Critical care time of [0] minutes excluding separately billable procedures was spent in conjunction with critical care activities provided by the Resident and Attending simultaneously. I was present during [no procedures] for all critical portions of the procedure and as immediately available to furnish service during the entire procedure. (Rosa Shin) Disposition Is patient prescribed a controlled substance at d/c from ED?: No Decision Time: 18:11 <Arlene Kemp - Last Filed: 01/19/25 18:10> <Rosa Shin - Last Filed: 01/20/25 00:18> Clinical Impression: Sinus congestion Disposition: HOME SELF-CARE Additional Instructions: Every disease is a spectrum and a small chance still exists that a serious con dition could develop, for this reason, please monitor yourself closely for new, changing or worsening symptoms, symptoms that persist beyond another 72 hours, headache, worsening ear pain, ear ringing, nausea, vomiting, worsening cough with increased production, worsening facial pain or pressure, fever >4 days, inability to tolerate/keep down fluids or your medications, inability to follow up with outpatient providers as instructed and should you experience these symptoms or should you have any further concerns for your wellbeing please return to the ED or call 911 immediately. Advised to humidifier at home, continue with decongestants and Benadryl, and follow-up with ENT and PCP on outpatient basis. PLEASE call your primary care physician as soon as possible to arrange / discuss plan for followup appointment. Appointment in the next 1-3 days is strongly encouraged if possible. PLEASE let us know here before you leave if there is anything further we can do to be of any assistance. Take care and feel Better! Referrals: Heather Salamanca MD [Primary Care Provider] - 1-2 days Juan Carlos Barnes MD [STAFF PHYSICIAN] - 1-2 days
[2025-01-19] MEDS: LORATADINE 10 MG TAB PO STA (17:56)
[2025-01-19 19:00] VITALS: BP 124/84; PULSE 76; TEMP 98
== END 2025-01-19 19:00 | disposition home or self-care (01) ==
LOC: EC 16:26
DX: R09.81 Nasal congestion (principal); Z88.5 Allergy status to narcotic agent
CPT/HCPCS: 99283